=== PATIENT | male | born 1995 | race Hispanic/Latino ===

== ENCOUNTER 2025-05-31 22:22 | Emergency (ER) | payer MEDICAID, OTHER ==
[~2025-05-31] VITALS: Ht 188 cm; Wt 131.5 kg
--- NOTE | 2025-05-31 22:42 | NUR ---
PT CAME IN WALKING WITH ONE CRUTCH. PT STATES HE WAS WORKING IN [employer] AND FELL. PT REPORTS PAIN TO LEFT HIP, RIGHT ANKLE, AND GENERALIZED PAIN THROUGHOUT. PT WAS GIVEN ICE PACK TO RIGHT ANKLE.
[2025-05-31] MEDS: CYCLOBENZAPRINE HCL 10 MG TABLET PO ONE (22:57)
--- NOTE | 2025-05-31 23:55 | HMCIMG ---
EXAM: CR Right Ankle, 3 views. CLINICAL HISTORY: Pain. COMPARISON: None provided. FINDINGS: No acute fracture or aggressive appearing osseous lesion. Joint spaces are within normal limits. No radiographic evidence of joint effusion. The soft tissues are unremarkable. Small dorsal calcaneal enthesophyte. IMPRESSION: 1. No acute osseous abnormality. 2. Small dorsal calcaneal enthesophyte. /[place]
--- NOTE | 2025-05-31 23:56 | HMCIMG ---
EXAM: X-Ray Pelvis and left Hip, 2 views. CLINICAL HISTORY: Pain. COMPARISON: None provided. FINDINGS: No acute fracture or aggressive appearing osseous lesion. Joint spaces are within normal limits. The soft tissues are unremarkable. IMPRESSION: No acute osseous abnormality. /[place]
--- NOTE | 2025-05-31 23:56 | HMCIMG ---
EXAM: X-ray Right Hand, 3 views. CLINICAL HISTORY: Pain. COMPARISON: None provided. FINDINGS: No acute fracture or aggressive appearing osseous lesion. The joint spaces are within normal limits. No arthritis. No joint erosion. The soft tissues are unremarkable. IMPRESSION: No acute osseous abnormality. /[place]
--- NOTE | 2025-06-01 00:01 | HMCIMG ---
EXAM: CR Right forearm, 2 views. CLINICAL HISTORY: Pain. COMPARISON: None provided. FINDINGS: No acute fracture or aggressive appearing osseous lesion. Joint spaces are within normal limits. The soft tissues are unremarkable. Small enthesophyte at the attachment of the triceps tendon. IMPRESSION: 1. No acute osseous abnormality. 2. Small enthesophyte at the attachment of the triceps tendon. /[place]
--- NOTE | 2025-06-01 00:01 | HMCIMG ---
EXAM: X-Ray Chest, 1 view. CLINICAL HISTORY: Pain. COMPARISON: None. FINDINGS: The lungs show no infiltrate or other acute findings. No pleural effusion or pneumothorax. The cardiomediastinal silhouette is within normal limits. No acute osseous abnormality. IMPRESSION: No acute cardiopulmonary pathology is evident. /[place]
--- NOTE | 2025-06-01 00:02 | HMCIMG ---
EXAM: CR Lumbar Spine, 3 views. CLINICAL HISTORY: Pain. COMPARISON: None. FINDINGS: Lumbar alignment is within normal limits. Normal intervertebral disc spaces. Normal vertebral body heights. No acute fracture. Soft tissues are within normal limits. IMPRESSION: No acute bony changes. /[place]
[2025-06-01] MEDS ORDERED: IBUP-1492 PO (00:27)
[2025-06-01] MEDS ORDERED: CYCL10TA16 PO (00:27)
--- NOTE | 2025-06-01 00:27 | ERN ---
ED Note History of Present Illness Stated Complaint: FALL, MULTIPLE INJURIES Chief Complaint: Mechanical Fall Time Seen by MD: 22:24 Time Seen by Midlevel: 22:24 Dictation: The patient is a 29-year-old male with a history of diabetes who presents to the emergency department with complaints of fall onset at 11:45 a.m. on 05/31/2025. Patient reports that he was at his job and he had to go down some steep stairs when he missed a step causing him to fall forward and landing on his back. Patient reports height was about 8 ft. Patient denies any head trauma, denies any LOC, denies any nausea or vomiting, denies any neck pain, denies any use of blood thinners. Patient complaints of left lower back pain and left hip pain but denies any urinary or fecal incontinence, denies any numbness to lower extremities. Patient also complaints of right forearm pain, right hand pain and right ankle pain. Patient otherwise denies any chest pain, upper back pain, abdominal pain. Allergies: Coded Allergies: No Known Allergies (Unverified Allergy, Unknown, 05/31/25) Home Meds Active Scripts Cyclobenzaprine HCl (Flexeril) 10 Mg Tab, 10 MG PO TID for muscle sstiffness, #14 TAB 0 Refills Prov:GINNY LOVETT [facility] 06/01/25 Ibuprofen (Ibuprofen) 600 Mg Tablet, 600 MG PO Q6H PRN for PAIN, #15 TAB Prov:PAULINE LOVETTLEN [facility] 06/01/25 Past Medical History Past Medical History: Diabetes-Type II Surgical History: None RN Note Reviewed/Agreed w/PFSH: Yes Review of System Dictation Constitutional: Negative for fever,chills, and weight loss Eyes: Negative for injury, pain,redness, and discharge ENT: Negative for injury,pain or swelling Cardiovascular: Negative for chest pain, palpitations, and edema Respiratory: Negative for shortness of breath, cough, and wheezing, Abdomen/GI: Negative for abdominal pain, nausea, vomiting, diarrhea, and constipation Back: Negative for injury and pain : Negative for injury, bleeding and discharge MS/Extremity: Positive for left hip pain, back pain, right arm pain, right ankle pain Skin: Negative for rash, and discoloration Neuro: Negative for headache, weakness, numbness, tingling, and seizure Psych: Negative for suicide ideation, homicidal ideation, and hallucinations Initial Vital Sign VS Vital Signs Date Time Temp Pulse Resp B/P (MAP) Pulse Ox O2 Delivery O2 Flow Rate FiO2 05/31/25 22:24 98.2 96 20 153/100 99 Room Air 05/31/25 22:44 0 21 Physical Exam Dictation Vital Signs reviewed General Appearance: Alert, oriented x 3, no acute distress, well developed, nourished. Head and Face: non-traumatic. Eyes: PERRL, pink conjunctivas, eyelid no trauma, anterior chamber with arcus senilis. Ears: Pinnas intact and no signs of trauma or erythema ear canals clear and no discharge TM no erythema Nose: No discharge, no bleeding. Oropharynx: Mouth normal, tongue pink. pharynx clear,no erythema, tonsils no exudates, no abscesses noted, mucous membrane moist Neck: Supple, non-tender, no thyromegaly, no masses, no JVD, no bruits Breast:Deferred Chest:No tenderness, no crepitus, no paradoxical movement, no retractions Lungs:Clear, well-ventilated, symmetric, no rales, no wheezing, no rhonchi, no stridor, good breath sounds bilaterally Heart: Regular rate, regular rhythm, no murmur, no gallops Vascular: no peripheral edema, dorsalis pedis 3+ bilaterally Abdomen: Soft, positive bowel sounds, nondistended, no guarding, nontender, no rebound, no masses no hepatomegaly, no splenomegaly, no Colvin's sign, no hernias. Rectal: Deferred Genital: Deferred Neurological: Normal speech, motor function intact, sensory function intact Musculoskeletal: Neck nontender, full range of motion, back nontender, full range of motion, Extremities: nontender, full range of motion tenderness to right ankle, no open wounds, no swelling, tenderness to left lower back, left hip pain Skin: Color pink, dry, no turgor, no rash, no lacerations, no abrasions, no contusions. Lymphatic: Deferred Results (Laboratory/Radiology) Laboratory/Radiology REASON: pain ORDERING PHYSICIAN: GINNY LOVETT [employer] PROCEDURE: HAND 3V RT - HAND 3+VWS RT EXAM: X-ray Right Hand, 3 views. CLINICAL HISTORY: Pain. COMPARISON: None provided. FINDINGS: No acute fracture or aggressive appearing osseous lesion. The joint spaces are within normal limits. No arthritis. No joint erosion. The soft tissues are unremarkable. IMPRESSION: No acute osseous abnormality. /[place] REASON: pain ORDERING PHYSICIAN: GINNY LOVETT PROCEDURE: LUMB 2 3VW - LUMBAR SPINE 2-3VWS EXAM: CR Lumbar Spine, 3 views. CLINICAL HISTORY: Pain. COMPARISON: None. FINDINGS: Lumbar alignment is within normal limits. Normal intervertebral disc spaces. Normal vertebral body heights. No acute fracture. Soft tissues are within normal limits. IMPRESSION: No acute bony changes. /[place] REASON: pain ORDERING PHYSICIAN: GINNY LOVETT [employer] PROCEDURE: HIP U 2V L - HIP UNILAT 2-3VW LEFT EXAM: X-Ray Pelvis and left Hip, 2 views. CLINICAL HISTORY: Pain. COMPARISON: None provided. FINDINGS: No acute fracture or aggressive appearing osseous lesion. Joint spaces are within normal limits. The soft tissues are unremarkable. IMPRESSION: No acute osseous abnormality. /[place] REASON: pain ORDERING PHYSICIAN: GINNY LOVETT [employer] PROCEDURE: FORARMR - FOREARM 2VWS RT EXAM: CR Right forearm, 2 views. CLINICAL HISTORY: Pain. COMPARISON: None provided. FINDINGS: No acute fracture or aggressive appearing osseous lesion. Joint spaces are within normal limits. The soft tissues are unremarkable. Small enthesophyte at the attachment of the triceps tendon. IMPRESSION: 1. No acute osseous abnormality. 2. Small enthesophyte at the attachment of the triceps tendon. /[place] REASON: pain ORDERING PHYSICIAN: GINNY LOVETT PROCEDURE: CXR1VW - CHEST 1VW EXAM: X-Ray Chest, 1 view. CLINICAL HISTORY: Pain. COMPARISON: None. FINDINGS: The lungs show no infiltrate or other acute findings. No pleural effusion or pneumothorax. The cardiomediastinal silhouette is within normal limits. No acute osseous abnormality. IMPRESSION: No acute cardiopulmonary pathology is evident. /[place] REASON: pain ORDERING PHYSICIAN: GINNY LOVETT PROCEDURE: [id number] - ANKLE COMP 3VWS RT EXAM: CR Right Ankle, 3 views. CLINICAL HISTORY: Pain. COMPARISON: None provided. FINDINGS: No acute fracture or aggressive appearing osseous lesion. Joint spaces are within normal limits. No radiographic evidence of joint effusion. The soft tissues are unremarkable. Small dorsal calcaneal enthesophyte. IMPRESSION: 1. No acute osseous abnormality. 2. Small dorsal calcaneal enthesophyte. /[place] [facility] Reviewed?: Yes ED Course ED Course Orders Procedure Category Date Status Time Lumbar Spine 2-3vws RAD 05/31/25 Resulted 22:44 Ankle Comp 3vws Rt RAD 05/31/25 Resulted 22:44 Hip Unilat 2-3vw Left RAD 05/31/25 Resulted 22:44 Forearm 2vws Rt RAD 05/31/25 Resulted 22:44 Chest 1vw RAD 05/31/25 Resulted 22:44 Ketorolac 60mg/2ml PHA 05/31/25 Complete (Toradol 60mg/2ml) 23:00 Cyclobenzaprine Hcl PHA 05/31/25 Complete (Cyclobenzaprine Hcl 23:00 Hand 3+Vws Rt RAD 05/31/25 Resulted 22:48 Apply [place]aton Wrap (Er) CPOE 06/01/25 Transmitted 00:18 Current Medications Medications (Trade) Dose Ordered Sig/Lily Route PRN Reason Start Time Stop Time Status Last Admin Dose Admin Cyclobenzaprine HCl (Cyclobenzaprine HCl) 10 mg ONCE ONCE PO 05/31/25 23:00 05/31/25 23:01 DC 05/31/25 22:57 Ketorolac Tromethamine (toRADol 60MG/ 2ML) 60 mg ONCE ONCE IM 05/31/25 23:00 05/31/25 23:01 DC 05/31/25 22:58 Vital Signs Date Time Temp Pulse Resp B/P (MAP) Pulse Ox O2 Delivery O2 Flow Rate FiO2 05/31/25 22:44 89 18 123/77 98 Room Air* 0 21 05/31/25 22:24 98.2 96 20 153/100 99 Room Air Medical Decision Making MDM The patient is a 29-year-old male with a history of diabetes who presents to the emergency department with complaints of fall onset at 11:45 a.m. on 05/31/2025. Patient reports that he was at his job and he had to go down some steep stairs when he missed a step causing him to fall forward and landing on his back. Patient reports height was about 8 ft. Patient denies any head trauma, denies any LOC, denies any nausea or vomiting, denies any neck pain, denies any use of blood thinners. Patient complaints of left lower back pain and left hip pain but denies any urinary or fecal incontinence, denies any numbness to lower extremities. Patient also complaints of right forearm pain, right hand pain and right ankle pain. Patient otherwise denies any chest pain, upper back pain, abdominal pain. X-ray showed no acute fractures or dislocations. Patient with no obvious bruising or swelling. No open wounds. Patient with no hematomas to head, no cervical tenderness, no contusions to back or abdomen, full range of motion on all extremities, no raccoon eyes, no collazo sign. No obvious signs of trauma. Patient continues neurovascularly intact. Patient with no saddle anesthesia, no urinary or fecal incontinence, stable vital signs We will be discharged to follow up with PCP. Differential diagnosis: Back sprain, ankle fracture, ankle sprain, lumbar fracture Need for hospitalization: Patient does not meet criteria for hospitalization. There are no social concerns with this patient. DX & DISP Disposition: Discharge Departure Impression: Primary Impression: Right ankle sprain Additional Impressions: Lumbar strain, Back contusion, Fall Condition: Stable Scripts Cyclobenzaprine HCl (Flexeril) 10 Mg Tab 10 MG PO TID for muscle sstiffness, #14 TAB 0 Refills Prov: GINNY LOVETT [employer] 06/01/25 Ibuprofen (Ibuprofen) 600 Mg Tablet 600 MG PO Q6H PRN for PAIN, #15 TAB Prov: GINNY LOVETT 06/01/25 Additional Instructions: Your x-rays did not show any fractures or dislocations. Please follow up with your primary doctor in 1-2 days. If anything worsens, you develop numbness to the your lower extremities, you have incontinence of your bowels or urinary incontinence please return to ER. Rest avoid activities that cause pain. Ice- apply cold pack, bag of ice, or bag of frozen vegetables on your extremity every 1-2 hours for 15 minutes each time. Put a thin towel between the ice and your skin. Use the ice for at least 6 hours after your injury. Compression - you want to have your extremity under slight pressure by having it wrapped in an elastic bandage. This helps reduce swelling and supports the injured extremity. Elevation - keep your extremity raised above the level of your heart. To do this you can put some foot on some pillows or blankets while laying down on the table or chair where sitting down. FOLLOW-UP WITH PRIMARY CARE PROVIDER IN 1 TO 2 DAYS. TAKE MEDICATIONS DIRECTED HERE IN THE EMERGENCY ROOM. OKAY TO CONTINUE HOME MEDICATIONS UNLESS OTHERWISE DISCUSSED DURING YOUR VISIT IN THE EMERGENCY ROOM TODAY. RETURN TO YOUR NEAREST EMERGENCY ROOM IF SYMPTOMS WORSEN OR IF THERE IS NO IMPROVEMENT. CALL 911 IF YOU NEED IMMEDIATE ASSISTANCE. TAKE TYLENOL [id number] NEEDED AND IF NO CONTRAINDICATIONS ARE PRESENT. INCREASE ORAL HYDRATION. A WOUND CULTURE OR URINE CULTURE WAS ORDERED HERE IN THE EMERGENCY ROOM DEPARTMENT PLEASE FOLLOW-UP WITH PRIMARY CARE PROVIDER AND ADVISE THEM TO GET REPEAT PORTS FROM OUR FACILITY. IF YOU HAD ANY [place] WRAP/SPLINTS THAT WERE APPLIED HERE, PLEASE DO NOT REMOVE THEM UNTIL YOU SEE YOUR PRIMARY CARE OR SPECIALTY. Referrals: JOSE REYES (PCP) YANIRA ATKINS DO Time of Disposition: 00:25 I have reviewed the case, and I agree with, Diagnosis and Plan GINNY LOVETT Jun 01, 2025 00:27
[2025-06-01 00:40] VITALS: BP 122/75; PULSE 87; RESP 18; TEMP 98.8; O2SAT 99
--- NOTE | 2025-06-01 00:50 | NUR ---
ISABELLA WRAP APPLIED TO RIGHT ANKLE
== END 2025-06-01 00:54 | disposition home or self-care (01) ==
LOC: EDH 22:22
DX: S93.401A Sprain of unspecified ligament of right ankle, initial encounter (principal); S39.012A Strain of muscle, fascia and tendon of lower back, initial encounter; S20.221A Contusion of right back wall of thorax, initial encounter; E11.9 Type 2 diabetes mellitus without complications; W18.39XA Other fall on same level, initial encounter; Y93.89 Activity, other specified; Y92.89 Other specified places as the place of occurrence of the external cause; Y99.8 Other external cause status
CPT/HCPCS: 99284; 71045; 73610; 73090; 73130; 73502; 72100; 96372; J1885